=== PATIENT | female | born 1985 | race Caucasian/White ===

== ENCOUNTER 2020-02-04 11:34 | Outpatient (RCR) | payer OTHER, SELFPAY ==
[2020-02-05] MEDS: RHO(D) IMMUNE GLOBULIN 300 MCG SYRINGE IM (17:29)
== END 2020-05-04 23:59 | disposition home or self-care (01) ==
LOC: ANHLAB 11:34
PROVIDERS: PCP Family Medicine; Visit Provider Obstetrics & Gynecology
DX: Z29.13 Encounter for prophylactic Rho(D) immune globulin (principal); O36.0990 Maternal care for other rhesus isoimmunization, unspecified trimester, not applicable or unspecified; Z3A.00 Weeks of gestation of pregnancy not specified
CPT/HCPCS: 36415; 85461; 90384; 96372; J2790

== ENCOUNTER 2020-04-12 09:47 | Outpatient (CLI) | payer OTHER, SELFPAY ==
[2020-04-12 10:00] VITALS: BP 140/96; PULSE 114
[2020-04-12 10:15] VITALS: BP 142/90; PULSE 98
[2020-04-12 10:21] LABS: Basophils Percent Auto 0.3 % (0.2-1.2); Eosinophils Absolute Auto 0.1 K/mm3 (0-0.3); Eosinophils Percent Auto 0.5 % (0-4.4); Hematocrit 39.8 % (37.0-47.0); Hemoglobin 13.2 g/dL (12.0-15.0); Immature Granulocyte Absolute 0.08 K/mm3 (0.00-0.031); Immature Granulocyte Percent A 0.6 % (0-0.5); Immature Platelet Fraction Pct 16.2 % (0.9-11.2); Lymphocytes Absolute Auto 1.63 K/mm3 (0.9-3.2); Lymphocytes Percent Auto 12.1 % (18.3-44.2); Mean Corpuscular HGB Conc 33.2 g/dl (32-36); Mean Corpuscular Hemoglobin 30.9 pg (26-34); Mean Corpuscular Volume 93.2 fl (80-100); Mean Platelet Volume 12.3 fl (7.4-10.4); Monocytes Absolute Auto 0.7 K/mm3 (0.1-0.6); Neutrophils Percent Auto 81.5 % (45.5-73.1); Platelet Count Result 126 k/mm3 (150-375); Red Blood Count 4.27 M/mm3 (4.2-5.4); Red Cell Distribution Width 13.5 % (11.5-14.5); White Blood Count 13.5 K/mm3 (4.5-10.0)
[2020-04-12 10:30] VITALS: BP 137/92; PULSE 89
[2020-04-12 10:31] VITALS: BP 137/92; PULSE 92
[2020-04-12 10:46] VITALS: BP 129/85; PULSE 89
[2020-04-12 10:47] LABS: Alanine Aminotransferase 14 U/L (4-35); Albumin Level 3.4 g/dL (3.5-5.1); Alkaline Phosphatase 216 U/L (38-126); Anion Gap 5 mmol/L (8-16); Aspartate Amino Transferase 23 U/L (14-36); Bilirubin,Total 0.2 mg/dL (0.2-1.3); Blood Urea Nitrogen 13 mg/dL (7-17); Calcium 8.9 mg/dL (8.4-10.2); Carbon Dioxide 24 mmol/L (22-30); Chloride 104 mmol/L (98-107); Estimated Glomerular Filt Rate > 60; Glucose 101 mg/dL (65-105); Sodium 133 mmol/L (137-145); Uric Acid 4.4 mg/dL (2.5-7.5)
== END 2020-04-12 10:30 | disposition home or self-care (01) ==
LOC: ANHOBOP 09:52 → ANHOBPP 09:52
PROVIDERS: PCP Family Medicine; Visit Provider Obstetrics & Gynecology
DX: O13.9 Gestational [pregnancy-induced] hypertension without significant proteinuria, unspecified trimester (principal); Z3A.00 Weeks of gestation of pregnancy not specified
CPT/HCPCS: 36415; 59025; 80053; 84550; 85025; 85055; 99199

== ENCOUNTER 2020-04-19 02:29 | Inpatient (IN) | payer OTHER, SELFPAY ==
[2020-04-19] VITALS (70 sets, daily range): BP systolic 107–148; BP diastolic 63–97; PULSE 75–130; RESP 14–18; TEMP 36.6–37.2; O2SAT 99–100; BMI 34.2
[2020-04-19] MEDS: LACTATED RINGERS 1,000 ML 125 ML IV CONT ×2 (03:00→03:43)
[2020-04-19 03:11] LABS: Basophils Percent Auto 0.3 % (0.2-1.2); Eosinophils Absolute Auto 0.1 K/mm3 (0-0.3); Eosinophils Percent Auto 0.8 % (0-4.4); Hematocrit 38.8 % (37.0-47.0); Immature Granulocyte Percent A 0.9 % (0-0.5); Lymphocytes Absolute Auto 2.39 K/mm3 (0.9-3.2); Lymphocytes Percent Auto 20.4 % (18.3-44.2); Mean Corpuscular HGB Conc 33.5 g/dl (32-36); Mean Corpuscular Hemoglobin 31.3 pg (26-34); Mean Corpuscular Volume 93.3 fl (80-100); Mean Platelet Volume 12.1 fl (7.4-10.4); Monocytes Absolute Auto 0.8 K/mm3 (0.1-0.6); Monocytes Percent Auto 6.5 % (2.6-8.5); Neutrophils Absolute Auto 8.3 K/mm3 (1.3-6.7); Neutrophils Percent Auto 71.1 % (45.5-73.1); Platelet Count Result 176 k/mm3 (150-375); Red Blood Count 4.16 M/mm3 (4.2-5.4); Red Cell Distribution Width 13.9 % (11.5-14.5); White Blood Count 11.7 K/mm3 (4.5-10.0)
--- NOTE | 2020-04-19 03:12 | LDADM ---
This patient, Blanca Chew, was admitted to Labor/Delivery/Recovery 106 on 04/19/20 at 02:29. Plans for labor, pain management and were discussed with patient. Patient/family oriented to hospital policies and general routines including ID bracelet, bed and alarms, visiting hours, pain management, procedures, bathroom and other care routines, personal items, smoking policy, room service/diet and guest tray routines, infant security routines, and visiting hours. Patient/Family are encouraged to report perceived risks to care and to ask questions if they do not understand what they are told or what they should do. See OBIX for further documentation.
--- NOTE | 2020-04-19 03:50 | WPDANESEPPF ---
Anes - Initial Pre Proc Eval Procedure: labor epidural Date/Time: 04/19/20 03:50 Surgeon: Pavel Mchugh MD Pre Op Diagnosis: labor pain Pre Op Diagnosis: CTX Patient Data Age: 35 Gender: F Height: 1.7 m Weight: 99 kg Last Vital Signs Temp 36.8 C 04/19/20 02:44 Pulse 93 04/19/20 03:47 BP 130/82 04/19/20 03:47 Pulse Ox 100 04/19/20 03:46 Allergies Allergy/AdvReac Type Severity Reaction Status Date / Time No Known Allergies Allergy Verified 02/05/20 17:29 Home Medications Medication Instructions Recorded Confirmed Type kfyowwzsfg-ipjjgdcbsndtw-tyth 1 cap PO Q8H PRN 03/17/20 03/17/20 History dextroamphetamine-amphetamine 20 mg PO BID 03/17/20 03/17/20 History [Adderall] modafinil 150 mg PO BID 03/17/20 03/17/20 History Laboratory Tests 04/19/20 04/19/20 03:03 03:03 WBC 11.7 K/mm3 H K/mm3 (4.5-10.0) RBC 4.16 M/mm3 L M/mm3 (4.2-5.4) Hgb 13.0 g/dL g/dL (12.0-15.0) Hct 38.8 % % (37.0-47.0) MCV 93.3 fl fl (80-100) MCH 31.3 pg pg (26-34) MCHC 33.5 g/dl g/dl (32-36) RDW 13.9 % % (11.5-14.5) Plt Count 176 k/mm3 k/mm3 (150-375) MPV 12.1 fl H fl (7.4-10.4) Immature Gran % (Auto) 0.9 % H % (0-0.5) Neut % (Auto) 71.1 % % (45.5-73.1) Lymph % (Auto) 20.4 % % (18.3-44.2) Mineral % (Auto) 6.5 % % (2.6-8.5) Eos % (Auto) 0.8 % % (0-4.4) Baso % (Auto) 0.3 % % (0.2-1.2) Lymph # (Auto) 2.39 K/mm3 K/mm3 (0.9-3.2) Mineral # (Auto) 0.8 K/mm3 H K/mm3 (0.1-0.6) Eos # (Auto) 0.1 K/mm3 K/mm3 (0-0.3) Baso # (Auto) 0.0 K/mm3 K/mm3 (0.0-0.1) Abs Immat Gran (auto) 0.10 K/mm3 H K/mm3 (0.00-0.031) Absolute Neuts (auto) 8.3 K/mm3 H K/mm3 (1.3-6.7) Absolute Nucleated RBC 0.0 K/mm3 K/mm3 (0.0-0.012) Nucleated RBC % 0.0 % % (0.0-0.2) RPR Pending Patient hx anesthesia problems: none Family hx anesthesia problems: none [facility] Family History Family History (Updated 03/17/20 @ 12:50 by Donald Blankenship RN) Father Cancer of kidney Mother Thyroid disease Diabetes mellitus Social History Social History Years smoked: 12 Smoking status: Current every day smoker Tobacco type: e-cigarettes/vaping Second hand tobacco smoke exposure: Yes Additional smoking assessment comments: Pt vaping for past 4 years Substance use: never Gender identity (if verbalized by the patient): Female Spiritual care concerns: No Anes - Eval Final PreProcedure Day of Procedure 04/19/20 03:50 Patient weight: obese Heart: regular rate and rhythm Lungs: clear to auscultation and normal air movement Airway: Mallampati scale Neurological: alert and oriented ASA classification: II Anesthetic plan: proceed Anesthesia type and monitoring: regional epidural and standard monitoring Informed Consent: The patient's anesthetic plan and its attendant risks and benefits were discussed with the patient/family/POA. Questions were solicited and answers provided to the satisfaction of the patient/family/POA.
--- NOTE | 2020-04-19 03:53 | WPDOBADMIT ---
Obstetrics - Admit Note Admission Note: record reviewed. Additions to the history and/or subsequent changes in the physical findings follow. 35 y/o at 40 3/7 weeks here with contractions. GBS neg. Cervix 7 cm at time of admission. Epidural was just placed. Starting to get some relief. AVSS NST reactive TOCO: contractions every 2-4 min ABD soft, nontender, gravid, vertex EXT nontender Cervix 7/80/-1. AROM with clear fluid. Vertex. A: IUP at term in labor. P: Anticipate .
[2020-04-19] MEDS: OXYTOCIN 30 UNITS/NS 500 ML 30 UNITS/500 ML BAG 999 UNITS IV CONT (07:15)
--- NOTE | 2020-04-19 07:33 | P.PCNOB_ITS ---
OB - Delivery Note Procedure Delivery date: 04/19/20 Procedure: Induction method: none Delivery augmentation: rupture of membranes Delivery monitor: external FHT and external uterine Route of delivery: Laceration Description: Perineal - 2nd Degree Delivery repair: vicryl (3-0) Specimen: Yes (cord blood) Estimated blood loss (mL): 305 Anesthesia type: Epidural Disposition: PACU Complications: None Narrative: 35 y/o at 40 3/7 weeks gestation who presented to the hospital with complaint of contractions. Her cervix was found to be 7 cm dilated. Labor was diagnosed. She received an epidural for pain control. Amniotomy was performed with return of clear fluid. Her labor progressed and her cervix dilated completely. She pushed with good effort and delivered the infant's head to the perineum, followed by the body. The nose and mouth were bulb suctioned. After a delay, the cord was clamped and cut. The infant was handed off the field. Cord blood was collected. The placenta delivered spontaneously and was grossly normal in appearance. The usual 3 vessel cord was noted. A second degree midline perineal laceration was sustained. This was reapproximated using 3 0 Vicryl in the usual layered fashion. Excellent hemostasis resulted as did excellent reapproximation of the normal anatomy. Needle and instrument counts were correct. The patient was taken to recovery room in stable condition. The infant went to the nursery in stable condition. I was present and scrubbed for the entire delivery. [place] Baby Date of : 04/19/20 Time of : 07:10 Weeks of gestation at delivery: 40 Infant gender: Female Weight (pounds): 6 Weight (ounces): 14 presentation: vertex position: Right Occiput Anterior Placenta delivery description: Spontaneous and Normal Configuration cord vessel description: 3 Vessels score one minute: 9 score five minutes: 9
--- NOTE | 2020-04-19 07:35 | PM.OBDSVD ---
DS: Admitting Diagnosis Admitting Diagnosis Admitting Diagnosis: Labor DS: Discharge Diagnosis Discharge Diagnosis (1) (normal spontaneous vaginal delivery): Code(s): O80 - Encounter for full-term uncomplicated delivery Status: Acute OB - DS: Summary OB Procedures : None OB Procedures Intrapartum: Spontaneous Vag Delivery OB Procedures: : None DS: Data Data Completed and Pending Labs on day of discharge: Labs from last 24 hours 04/19/20 04/19/20 04/19/20 03:03 03:03 03:03 WBC 11.7 H RBC 4.16 L Hgb 13.0 Hct 38.8 MCV 93.3 MCH 31.3 MCHC 33.5 RDW 13.9 Plt Count 176 MPV 12.1 H Immature Gran % (Auto) 0.9 H Neut % (Auto) 71.1 Lymph % (Auto) 20.4 Alfalfa % (Auto) 6.5 Eos % (Auto) 0.8 Baso % (Auto) 0.3 Lymph # (Auto) 2.39 Alfalfa # (Auto) 0.8 H Eos # (Auto) 0.1 Baso # (Auto) 0.0 Abs Immat Gran (auto) 0.10 H Absolute Neuts (auto) 8.3 H Absolute Nucleated RBC 0.0 Nucleated RBC % 0.0 RPR Pending Blood Type O Negative Antibody Screen Positive Antibody Identification Inconclusive Antigen Identification Cancelled LORI, IgG Interpret Not Performed LORI, Poly Interpret Negative LORI, Complement Interp Not Performed Discharge Plan Discharge Attending physician on discharge: Pavel Mchugh Discharging Clinician: Pavel Mchugh Patient Disposition: Home, Self-Care Activity: pelvic rest Diet: regular Discharge Instructions: Call or return if temperature above 100.4? F, increased abdominal pain, increased vaginal bleeding or any new problems. Patient Instructions: How to Stop Smoking (DC) Stand Alone Forms: General Discharge Information Follow-up/Referrals: Pavel Mchugh MD [Physician] - 6 Weeks Discharge Medications: New ibuprofen 600 mg tablet 600 mg PO Q6H PRN (Reason: cramps) Qty: 30 RF: 0 No Action dextroamphetamine-amphetamine [Adderall] 20 mg Tablet 20 mg PO BID RF: 0 modafinil 100 mg Tablet 150 mg PO BID RF: 0 vhyavjhyvo-acvkgkezwhuea-urtr 50-300-40 mg Capsule 1 cap PO Q8H PRN (Reason: Headache) RF: 0 Date of admission: 04/19/20 02:29 Primary Care Provider: Dejon,Juan Ortiz Admitting Provider: Pavel Mchugh Attending physician on admission: Pavel Mchugh Condition: Stable
[2020-04-19] MEDS: OXYTOCIN 30 UNITS/NS 500 ML 30 UNITS/500 ML BAG 125 UNITS IV CONT (07:48)
[2020-04-19] MEDS: BENZOCAINE 20% AER SPR (*SP) 56 GM CAN 1 SPRAY TOPICAL (09:05)
[2020-04-19] MEDS: WITCH HAZEL 40 PADS 1 PAD TOPICAL (09:05)
[2020-04-19] MEDS: IBUPROFEN 600 MG TABLET PO ×2 (10:30→16:08)
--- NOTE | 2020-04-19 10:50 | PC.NURSE ---
Consulted with patient, mother has not fed since . Mother states she has had breast augmentation X2, before first child. Mother pumped and bottle fed with first child due to latch issues. She had a good milk supply with minimal formula needed. Reviewed feeding cues, frequencies, duration of feedings, feeding elimination flow sheet, and signs of adequate intake. Demonstrated stimulation techniques to wake for feeding. Assisted with to breast. Reviewed positioning/alignment in cross cradle, holding breast in U hold and guided asymmetrical latch on. was sleepy and is sucking on her tongue, not allowing latch. Attempt for 10-15 minutes. Mother would like to pump and bottle feed EBM if available. Assisted mother with her Medela double electric pump. Mother was able to pump 13mls to give to infant for this feeding.
[2020-04-19 12:34] LABS: Rapid Plasma Reagin Non-Reactive (NonReactive)
[2020-04-19] MEDS: DOCUSATE SODIUM 100 MG CAPSULE PO (16:08)
[2020-04-19] MEDS: ACETAMINOPHEN 325 MG TABLET 650 MG PO (20:10)
[2020-04-20] MEDS: ACETAMINOPHEN 325 MG TABLET 650 MG PO (05:15)
[2020-04-20] MEDS: IBUPROFEN 600 MG TABLET PO ×2 (05:17→11:25)
[2020-04-20 05:53] LABS: Hematocrit 35.6 % (37.0-47.0); Hemoglobin 11.3 g/dL (12.0-15.0)
--- NOTE | 2020-04-20 07:13 | WPDANLDPN2 ---
Anes-Prog Note L&D Date/Time: 04/20/20 07:13 Comfortable throughout: labor and delivery Neuraxial method: epidural Epidural/Spinal procedure site: clean & non-tender Neuro status: Neuro function grossly intact. Cardiovascular status: normal Respiratory status: normal Airway patency: baseline Mental status: baseline Post-Op hydration status: normal Vital Signs: Last Vital Signs Temp 37.2 C 04/19/20 19:50 Pulse 94 04/19/20 19:50 Resp 18 04/19/20 19:50 BP 126/87 04/19/20 19:50 Pulse Ox 100 04/19/20 07:06 Pain score (VAS): 1 I/O: Intake & Output 04/19/20 04/19/20 04/20/20 15:59 23:59 07:59 Output Total 100 Balance -100 Post-procedural complaints: none Patient feedback: Patient satisfied with anesthetic care.
[2020-04-20] MEDS: WITCH HAZEL 40 PADS 1 PAD TOPICAL (07:54)
[2020-04-20] MEDS: BENZOCAINE 20% AER SPR (*SP) 56 GM CAN 1 SPRAY TOPICAL (07:54)
[2020-04-20] MEDS: DOCUSATE SODIUM 100 MG CAPSULE PO (07:54)
[2020-04-20] MEDS: MULTIVIT/MIN/PREN/FOL AC/IRON TABLET 1 TAB PO (07:55)
[2020-04-20 08:00] VITALS: BP 143/90; PULSE 91; RESP 18; TEMP 36.5; O2SAT 100
--- NOTE | 2020-04-20 08:00 | PC.NURSE ---
Patient was given the opportunity to view the discharge video Mother & Baby Care, The First Two Weeks and to ask questions. Patient declined viewing the video and has been given the mother/baby guide for home reference.
--- NOTE | 2020-04-20 08:42 | PM.OBPNVD ---
OB - PN: Subj Subjective Date/time seen: 04/20/20 08:42 Narrative: Pain OK. Would like to go home. OB - PN: Obj Data Labs CBC & Chem 7: 04/20/20 05:26 Labs: Laboratory Results - last 24 hr 04/19/20 04/20/20 03:03 05:26 Hgb 11.3 L Hct 35.6 L RPR Non-reactive OB - PN A/P Plan Comments: A: PPD#1, doing well. P: Home to f/u 6 weeks. Exam Psych: Other: AVSS ABD soft, nontender, fundus firm EXT nontender
--- NOTE | 2020-04-20 09:05 | PC.NURSE ---
Consult with pt., mother states she continues to attempt to breast, will latch for a few minutes then release latch. Mother has been bottle feeding EBM/formula each feeing and pumping. Mother states she will continue to attempt to breast each feeding, then follow with supplementation and pumping. Mother is is pumping without difficulties or discomfort. Discussed when to increase supplementation. Mother is feeding as required and waking to feed if needed. Infant is currently meeting outcomes for weight, output, jaundice and feeding frequencies. Mother states she feels confident to continue current feeding plan at home. Reviewed transition to breast milk, signs of adequate intake, and engorgement/relief. Instructed to call ICP if intake/output less than required. Reviewed regular medications mother is taking. Information provided per Krista. Reviewed community resources on the [employer] website and in the Mom/Baby guide. Information on outpatient services provided. Mother has no further questions at this time.
--- NOTE | 2020-04-20 09:51 | PC.NURSE ---
Self care and infant care discharge instructions given including follow up visit date and time. Mother verbalized understanding. No questions or concerns verbalized. FOB at side.
[2020-04-21 09:48] VITALS: BP 132/83; PULSE 86; RESP 16; TEMP 36.7
== END 2020-04-20 13:45 | disposition home or self-care (01) | DRG 807 ==
LOC: ANHLDR 07:36 → ANHOB2 10:47
PROVIDERS: Admitting Provider Obstetrics & Gynecology; PCP Family Medicine; Visit Provider Obstetrics & Gynecology
DX: O99.334 Smoking (tobacco) complicating childbirth (principal); Z37.0 Single live birth; Z3A.40 40 weeks gestation of pregnancy; F17.290 Nicotine dependence, other tobacco product, uncomplicated; O99.214 Obesity complicating childbirth; E66.9 Obesity, unspecified; O70.1 Second degree perineal laceration during delivery; O36.8330 Maternal care for abnormalities of the fetal heart rate or rhythm, third trimester, not applicable or unspecified; O77.0 Labor and delivery complicated by meconium in amniotic fluid
CPT/HCPCS: 36415; 85014; 85018; 85025; 86592; 86850; 86880; 86900; 86901; 86902; A9270; J2590; J2795; J7120

== ENCOUNTER 2024-05-16 15:34 | Outpatient (CLI) | payer OTHER, SELFPAY ==
--- NOTE | ~2024-05-16 | MR_ITS ---
EXAMINATION: MR knee LT wo con DATE: 05/16/2024 16:11 INDICATION: Left knee pain. TECHNIQUE: Magnetic resonance imaging (MRI) of the left knee was performed without intravenous contra st. Sequences included axial PD-weighted FS FSE, coronal PD-weighted FSE and PD-weighted FS FSE, sagi ttal PD-weighted FSE, and sagittal T2-weighted FS FSE. COMPARISON: None. FINDINGS: Medial compartment: There is a complex tear involving anterior horn, body, and posterior horn of medial meniscus. There i s full-thickness cartilage loss of femoral condyle involving the central articular surface in an area measuring 4 mm x 4 mm with mild subchondral edema-like marrow signal intensity. There is cartilage s urface irregularity of tibial condyle. Lateral compartment: There is a radial tear of posterior horn of lateral meniscus. Lateral compartment cartilage is normal . Patellofemoral compartment: Patellar cartilage is normal. Trochlear cartilage is normal. Ligaments and tendons: There is a complete tear of anterior cruciate ligament. Posterior cruciate ligament is normal. Medial collateral ligament is normal. There are changes of prior sprain of fibular collateral ligament alla acterized by increased signal intensity proximally. The patellar tendon is normal. Fluid: There is a large knee joint effusion. There is mild prepatellar and superficial infrapatellar bursiti s. Osseous/other: There is edema-like marrow signal intensity in medial and lateral tibial condyles and notch of latera l femoral condyle, consistent with contusions. IMPRESSION: 1. Complete tear of anterior cruciate ligament. 2. Severe chondrosis of medial compartment. 3. Tears of medial and lateral menisci. 4. Large joint effusion. Reviewed, dictated and finalized at location A. [employer]
== END 2024-05-16 15:35 | disposition home or self-care (01) ==
PROVIDERS: PCP Orthopaedic Surgery; Visit Provider Orthopaedic Surgery
DX: S83.512A Sprain of anterior cruciate ligament of left knee, initial encounter (principal); M94.262 Chondromalacia, left knee; S83.242A Other tear of medial meniscus, current injury, left knee, initial encounter; S83.282A Other tear of lateral meniscus, current injury, left knee, initial encounter; M25.462 Effusion, left knee
CPT/HCPCS: 73721